=== PATIENT | female | born 1990 | race Caucasian/White ===

== ENCOUNTER 2024-10-05 12:57 | Emergency (ER) | payer BC, SELFPAY ==
[2024-10-05 13:08] VITALS: BP 120/80; PULSE 104; RESP 18; TEMP 36.6; O2SAT 97; BMI 30.7
--- NOTE | 2024-10-05 13:17 | ED.GENADULT ---
HPI - General Adult General Date Seen: 10/05/24 Chief complaint: Cough Stated complaint: cough and abdominal pain Time Seen by Provider: 10/05/24 13:13 History of Present Illness HPI narrative: 34-year-old female presenting to the ER today with cough and right-sided abdominal pain. She was actually seen in our urgent care this morning. According to those notes... two week history of progressively worsening cough and new onset of fever with T-max of 102.1. Endorses shortness of breath at rest that worsens with exertion; denies difficulty breathing, hemoptysis, post-tussive emesis. Treating symptoms with Mucinex and Robitussin alternating, feels it was initially helpful but no longer so. Has had pneumonia in the past, states this feels very similar, especially now that she's developed a fever. Treating fever with Tylenol and ibuprofen, which has been helpful. History of provoked PE; completed one year of anticoagulation and extensive workup with hematology, reports no significant findings from this. Reports the PE felt similar but also had sharp side pain and bloody sputum with that. Decreased appetite but tolerating food and fluids. PCP through [facility]. No other symptoms... Auscultation reveals restricted air movement, especially on right side as well as mild to moderate diffuse expiratory wheezing and coarse rhonchi in HARRY. Post-neb lung assessment reveals improved aeration and cessation of expiratory wheezing with persistent coarse rhonchi in HARRY that does not clear with cough. Discharged with amoxicillin, Azithromycin, fluticasone/salmeterol This afternoon after discharge she is now developing new pain in her right anterolateral lower rib. The pain is pleuritic and worse with breathing. It is not severe pain. Does not radiate through the back. No other pain down into her abdomen. No relationship to eating lunch for food. Pain is somewhat reminiscent of when she had a pulmonary embolism a few years ago so she is worried about that and came here to be checked. No swelling in her legs. She did at home COVID test last week that was negative. Related Data Home Medications ?Medication ?Instructions ?Recorded ?Confirmed escitalopram oxalate 10 mg tablet 10 mg PO DAILY 02/24/23 10/05/24 levothyroxine 50 mcg tablet 50 mcg PO DAILY 02/24/23 10/05/24 propranolol 10 mg tablet 10 - 20 mg PO PRN 02/24/23 10/05/24 Previous Rx's ?Medication ?Instructions ?Recorded amoxicillin 500 mg capsule 1,000 mg (2 x 500 mg) PO TID 5 10/05/24 days #30 caps azithromycin 250 mg tablet See Rx Instructions PO .COMPLEX #6 10/05/24 tabs fluticasone 100 mcg-salmeterol 50 1 inh inhalation BID #60 ea 10/05/24 mcg/dose blistr powdr for inhalation Allergies Allergy/AdvReac Type Severity Reaction Status Date / Time No Known Drug Allergies Allergy Verified 10/05/24 14:37 [facility] Medical History (Updated 10/05/24 @ 16:01 by Manuel Mc MD) Pulmonary embolism ?I26.99 - Other pulmonary embolism without acute cor pulmonale (ICD-10) Social History Smoking Status: Never smoker Do you use any of these nicotine containing products: None How often do you have a drink containing alcohol: never How often do you have six or more drinks on one occasion: Never AUDIT-C Alcohol total score: 0 Non-prescribed substance use: denies use Exam Narrative: Exam Narrative: Constitutional: Appears well-developed and well-nourished. Alert. Conversant. Non toxic. HENT: Head: Atraumatic. Nose: Nose normal. Mouth/Throat: Oral mucosa is clear and moist. no trismus. Pharynx normal. Tonsils symmetric. No tonsillar enlargement, erythema, or exudate. Eyes: Conjunctivae normal. EOM normal. Pupils equal, round, and reactive to light. No scleral icterus. Neck: Normal range of motion. Neck supple. No tracheal deviation present. Cardiovascular: Normal rate, regular rhythm. No gallop. No friction rub. No murmur heard. Symmetric radial artery pulses Pulmonary/Chest: Effort normal. Occasional cough. No stridor. No respiratory distress. No wheezes. Scattered bibasilar rales. No rhonchi . No tenderness. Abdominal: Soft. Bowel sounds normal. No distension. No mass. No tenderness. No Sotelo sign. No CVA tenderness. No rebound. No guarding. Musculoskeletal: RUE: Normal range of motion. No tenderness. No deformity LUE: Normal range of motion. No tenderness. No deformity RLE: Normal range of motion. No edema. No tenderness. No deformity LLE: Normal range of motion. No edema. No tenderness. No deformity Neurological: Alert and oriented to person, place, and time. Normal strength. CN II-VII intact. No sensory deficit. GCS eye subscore is 4. GCS verbal subscore is 5. GCS motor subscore is 6. Normal coordination Skin: Skin is warm and dry. No rash noted. No pallor. Normal capillary refill. Psychiatric: Normal mood. Normal affect. Const: Vital Signs, click to edit/add: Vital Signs - 24 hr 10/05/24 13:08 Temperature 98 F Pulse Rate [Pulse Oximeter] 104 H Respiratory Rate 18 Blood Pressure [[facility] Upper Arm] 120/80 Pulse Oximetry 97 Oxygen Delivery Me thod Room Air Course Vital Signs Vital signs: Initial Vital Signs Temperature 98 F 10/05/24 13:08 Temperature Source Temporal Artery Scan 10/05/24 13:08 Pulse Rate 104 H 10/05/24 13:08 Respiratory Rate 18 10/05/24 13:08 Blood Pressure 120/80 10/05/24 13:08 Blood Pressure Mean 93 10/05/24 13:08 Blood Pressure Position Sitting 10/05/24 13:08 Pulse Oximetry 97 10/05/24 13:08 Oxygen Delivery Method Room Air 10/05/24 13:08 Vital Signs Temperature 98 F 10/05/24 13:08 Pulse Rate 104 H 10/05/24 13:08 Respiratory Rate 18 10/05/24 13:08 Blood Pressure 120/80 10/05/24 13:08 Pulse Oximetry 97 10/05/24 13:08 Oxygen Delivery Method Room Air 10/05/24 13:08 Temperature 98 F 10/05/24 13:08 Pulse Rate 104 H 10/05/24 13:08 Respiratory Rate 18 10/05/24 13:08 Blood Pressure 120/80 10/05/24 13:08 Pulse Oximetry 97 10/05/24 13:08 Oxygen Delivery Method Room Air 10/05/24 13:08 Medical Decision Making MDM Narrative Medical decision making narrative: Very pleasant 34-year-old female who has a history of PE (1 PE in the past, treated with 1 year of anticoagulation about 5 years ago. Not currently on anticoagulation) presenting to the ER today with pleuritic right anterior lateral lower chest pain. Says high cough for couple past couple of weeks. She was tested home for COVID and was negative. She was seen in urgent care today and diagnosed with pneumonia and put on amoxicillin Azithromycin. After that she developed some pleuritic pain so presented to the ER. CT scan of her chest today is negative for PE. It does show bilateral ground-glass opacities which could be an atypical pneumonia such as mycoplasma. Also could be COVID. However she was tested for that last week and was negative. She would be outside the window for any treatment with antivirals. Treatment for COVID pneumonia would be supportive at this time. She is not hypoxic or short of breath or showing signs of respiratory fatigue where she would require hospitalization. She is not currently wheezing to say that she would benefit from bronchodilators or steroids at this time. Laboratory workup is reassuring. Normal white count. With her very lower rib edge pain consider possible intra-abdominal causes. LFTs and lipase are normal. No right upper quadrant tenderness on exam to suggest acute cholecystitis. On the abdominal slices from her chest CT no obvious gallstones or cholecystitis. She is not having any ripping or tearing pain. No pain through to the back. Symmetric pulses on exam. Mediastinum is normal on her PE protocol CT. Pain is clear E anterior lateral and right lower rib edge and pleuritic. Not suggestive for acute coronary syndrome. I do not think she needs EKG or troponin. Patient is reassured with negative CT scan. She will continue antibiotics for treatment of atypical pneumonia in the outpatient setting. Discussed possible COVID. Precautions for return to the ER reviewed. Questions answered. Lab Data Labs: Lab Results 10/05/24 Range/Units 13:40 WBC 8.59 (4.50-11.00) K/uL RBC 4.01 (4.00-5.20) m/uL Hgb 12.7 (12.0-16.0) gm/dL Hct 36.2 (33.0-51.0) % MCV 90 (80-100) fL MCH 32 (26-34) pg MCHC 35 (32-36) gm/dL RDW Coeff of Guille 13.0 (11.5-15.5) % Plt Count 249 (140-440) K/uL Neut % (Auto) 77.1 H (42.0-72.0) % Lymph % (Auto) 16.9 L (20-44) % [place] % (Auto) 4.0 (0.0-11.0) % Eos % (Auto) 1.5 (0.0-7.0) % Baso % (Auto) 0.3 (0.0-3.0) % Neut # (Auto) 6.60 (1.7-7.0) K/uL Lymph # (Auto) 1.50 (0.90-2.90) K/uL [place] # (Auto) 0.30 (0.00-0.90) K/UL Eos # (Auto) 0.13 (0.00-0.50) K/uL Baso # (Auto) 0.03 (0.00-0.30) K/uL Abs Immat Gran (auto) 0.02 (0.00-0.30) K/uL Imm/Tot Granulo (auto) 0.2 % Sodium 139 (135-149) mmol/L Potassium 3.2 L (3.6-5.1) mmol/L Chloride 104 (96-114) mmol/L Carbon Dioxide 25 (20-32) mmol/L Anion Gap 10 (7-15) mEq/L BUN 8 (5-24) mg/dL Creatinine 0.7 (0.5-1.5) mg/dL Estimated Creat Clear 124.18 Estimated GFR 115 ml/min Glucose 111 (60-115) mg/dL Calcium 9.3 (8.4-10.6) mg/dL Total Bilirubin 0.4 (0.1-1.5) mg/dL AST 19 (12-35) U/L ALT 19 (4-35) U/L Alkaline Phosphatase 46 (40-150) U/L Total Protein 7.6 (6.0-8.3) g/dL Albumin 4.7 (3.3-5.0) g/dL Lipase 87 (23-300) U/L HCG, Qual Negative (Negative) Imaging Data CT scan - chest: Attestation: I have reviewed the pertinent imaging results. Radiologist's impression: IMPRESSION: 1. No pulmonary embolus. No CT evidence of right heart strain. 2. Ill-defined ground-glass consolidation involving the left greater than right lower lobes, suspicious for a developing pneumonia. Discharge Plan Discharge Clinical Impression: Pneumonia Instructions: Community Acquired Pneumonia (DC) Additional Instructions: As we discussed, your CT scan does not show any blood clots today. It does show areas of pneumonia affecting both of your lungs. Please continue on the antibiotics that the Urgent Care prescribed to you. Monitor symptoms carefully and come back to the ER or see your doctor immediately if you have any worsening symptoms, especially worsening chest pain, trouble breathing, high fever, weakness, worsening abdominal pain, jaundice, or any other problems. Prescriptions: No Action escitalopram oxalate 10 mg tablet 10 mg PO DAILY levothyroxine 50 mcg tablet 50 mcg PO DAILY propranolol 10 mg tablet 10 - 20 mg PO PRN amoxicillin 500 mg capsule 1,000 mg PO TID 5 Days Qty: 30 0RF fluticasone propion-salmeterol 100-50 mcg/dose blister with device 1 inh inhalation BID Qty: 60 0RF azithromycin 250 mg tablet See Rx Instructions PO .COMPLEX Qty: 6 0RF Rx Instructions: For 250 mg dose pack: take 500 mg today (day 1), then 250 mg for 4 days (days 2-5) PO Follow Up/Referrals: Prabha Campuzano MD [Primary Care Provider] - Stand Alone Forms: [employer] Info Instructions
--- NOTE | 2024-10-05 13:31 | CRLHL7_ITS ---
For Patients: As a result of the 21st Century Cures Act, medical imaging exams and procedure reports are released immediately into your electronic medical record. You may view this report before your referring provider. If you have questions, please contact your health care provider. INDICATION: Dyspnea. Chest pain. TECHNIQUE: Multiplanar CT pulmonary angiogram was performed after the administration of 95 mL of Isovue 370 intravenous contrast. COMPARISON: Same day chest radiograph FINDINGS: Lower neck: The visualized thyroid is unremarkable. Cardiovascular: Contrast opacification of the pulmonary arterial tree is adequate. Heart size is normal. Thoracic aorta and pulmonary artery are normal in caliber. No significant atherosclerotic calcifications of the aortic arch. No significant coronary arterial calcifications. No pulmonary embolus Mediastinum and lymph nodes: Unremarkable. No pathologic mediastinal or hilar lymphadenopathy by size criteria. Lungs: Patchy ground-glass consolidation involving the left lower lobe with scattered tree-in-bud nodularity. There is ground-glass opacification involving the right lower lobe as well, however to a lesser extent and possibly representing dependent atelectasis. Dependent atelectasis. Linear bandlike opacification of the lung bases bilaterally, likely subsegmental atelectasis and/or scarring. Airways: The trachea remains patent and midline. Mild diffuse peribronchial wall thickening. Pleura: No pleural effusions or pneumothorax Chest wall: Unremarkable. Prominent axillary lymph nodes that do not meet size criteria for lymphadenopathy. Bones: No acute osseous abnormalities. Upper abdomen: Unremarkable. No reflux of contrast material into the IVC. IMPRESSION: 1. No pulmonary embolus. No CT evidence of right heart strain. 2. Ill-defined ground-glass consolidation involving the left greater than right lower lobes, suspicious for a developing pneumonia. Please note that all CT scans at this facility use dose modulation, iterative reconstruction, and/or weight-based dosing when appropriate to reduce radiation dose to as low as reasonably achievable. Dictated by Yosi Willingham MD @ 10/05/2024 3:11:25 PM (Electronically Signed)
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
[2024-10-05 13:49] LABS: Basophils Absolute Auto 0.03 K/uL (0.00-0.30); Basophils Percent Auto 0.3 % (0.0-3.0); Eosinophils Absolute Auto 0.13 K/uL (0.00-0.50); Eosinophils Percent Auto 1.5 % (0.0-7.0); Hematocrit 36.2 % (33.0-51.0); Hemoglobin* 12.7 gm/dL (12.0-16.0); Immature Granulocytes Abs Auto 0.02 K/uL (0.00-0.30); Immature Granulocytes Pct Auto 0.2 %; Lymphocytes Percent Auto 16.9 % (20-44); Mean Corpuscular HGB Conc 35 gm/dL (32-36); Mean Corpuscular Hemoglobin 32 pg (26-34); Mean Corpuscular Volume 90 fL (80-100); Neutrophils Percent Auto 77.1 % (42.0-72.0); Platelet Count* 249 K/uL (140-440); Red Blood Count 4.01 m/uL (4.00-5.20); White Blood Count* 8.59 K/uL (4.50-11.00)
[2024-10-05 13:53] LABS: Slide Review Reflex No
[2024-10-05 14:02] LABS: Albumin* 4.7 g/dL (3.3-5.0); Chloride* 104 mmol/L (96-114)
[2024-10-05 14:03] LABS: Potassium* 3.2 mmol/L (3.6-5.1); Sodium* 139 mmol/L (135-149)
[2024-10-05 14:05] LABS: Anion Gap 10 mEq/L (7-15); Aspartate Amino Transferase* 19 U/L (12-35); Bilirubin Total* 0.4 mg/dL (0.1-1.5); Carbon Dioxide* 25 mmol/L (20-32); Creatinine* 0.7 mg/dL (0.5-1.5); Est. Creatinine Clearance* 124.18; Estimated Glomerular Filt Rate 115 ml/min; Total Protein* 7.6 g/dL (6.0-8.3)
[2024-10-05 14:06] LABS: Alanine Aminotransferase* 19 U/L (4-35); Alkaline Phosphatase* 46 U/L (40-150); Blood Urea Nitrogen* 8 mg/dL (5-24); Calcium* 9.3 mg/dL (8.4-10.6); Glucose* 111 mg/dL (60-115); Lipase* 87 U/L (23-300)
[2024-10-05 14:16] LABS: HCG Qualitative Serum* Negative (Negative)
[2024-10-05 16:05] VITALS: BP 117/73; PULSE 86; RESP 18; O2SAT 97
== END 2024-10-05 16:08 | disposition home or self-care (01) ==
PROVIDERS: Emergency Provider Emergency Medicine; PCP Family Medicine
DX: J18.9 Pneumonia, unspecified organism (principal)
CPT/HCPCS: 36415; 71275; 80053; 83690; 84703; 85025; 99283; 99284; Q9967

== ENCOUNTER 2025-01-21 17:10 | Outpatient (CLI) | payer BC, SELFPAY ==
--- NOTE | 2025-01-21 17:30 | CRLHL7_ITS ---
For Patients: As a result of the Cures Act, medical imaging exams and procedure reports are released immediately into your electronic medical record. You may view this report before your referring provider. If you have questions, please contact your health care provider. INDICATION: Neck pain. TECHNIQUE: Noncontrast sagittal T1, T2, STIR and axial GRE sequences are provided. Compared to prior study from December 28, 2020 FINDINGS: The overall stature, alignment and intrinsic marrow signal of the cervical spine is within normal limits. Cervical cord is normal. No suspicious disc bulges or protrusions. No suspicious central canal or foraminal narrowing. IMPRESSION: Unremarkable MRI of the cervical spine. Dictated by Will Scott MD @ 01/21/2025 6:32:02 PM (Electronically Signed)
== END 2025-01-21 17:11 | disposition home or self-care (01) ==
PROVIDERS: PCP Family Medicine; Visit Provider Physical Medicine & Rehabilitation
DX: M54.2 Cervicalgia (principal); M47.812 Spondylosis without myelopathy or radiculopathy, cervical region
CPT/HCPCS: 72141